=== PATIENT | female | born 1965 | race Caucasian/White ===

== ENCOUNTER 2018-07-02 10:54 | Outpatient (CLI) | payer OTHER ==
--- NOTE | 2018-07-02 11:20 | RAD ---
FOUR VIEWS LEFT KNEE: Date: 07-02-18 Comparison: None. History: Knee pain. FINDINGS: There is moderate medial compartment narrowing with associated osteophyte formation involving the med ial tibial plateau and medial femoral condyle. There is mild lateral compartment narrowing with assoc iated osteophyte formation of the lateral femoral condyle and lateral tibial plateau. There is no knee joint effusion, displaced fracture, or dislocation. There is moderate patellofemoral degenerative joint disease as well. IMPRESSION: Multi-compartment degenerative joint disease. No acute osseous abnormality. POS: CYNDY
--- NOTE | 2018-07-02 11:29 | RAD ---
FOUR VIEWS RIGHT KNEE: Date: 07-02-18 Comparison: None. History: Chronic knee pain. FINDINGS: There is no displaced fracture or evidence of dislocation. No knee joint effusion. IMPRESSION: No acute findings. POS: CYNDY
== END 2018-07-02 10:55 | disposition home or self-care (01) ==
LOC: SCSRAD 10:54
PROVIDERS: ATTEND Nurse Practitioner
DX: M17.0 Bilateral primary osteoarthritis of knee (principal)

== ENCOUNTER 2019-03-31 06:56 | Day surgery (SDC) | payer OTHER ==
[2019-03-30 13:17] VITALS: BMI 38.7
[2019-03-31] MEDS ORDERED: Midazolam HCl 2 mg/2 ml Vial ONE (08:08)
[2019-03-31] MEDS ORDERED: Fentanyl 100 MCG/2 ML VIAL ONE ×2 (08:08→09:17)
[2019-03-31] MEDS ORDERED: Lidocaine 1% w/Epinephrine 1:100K 30 ML VIAL ONE (09:39)
--- NOTE | 2019-03-31 16:23 | OP ---
DATE OF PROCEDURE: 03/31/2019 PREOPERATIVE DIAGNOSIS: Left carpal tunnel syndrome. POSTOPERATIVE DIAGNOSIS: Left carpal tunnel syndrome. PROCEDURE PERFORMED: Left carpal tunnel release. ANESTHESIOLOGIST: Musa Rivas MD. ANESTHESIA: The patient received an LMA with 7 mL of lidocaine 1% with epinephrine. ESTIMATED BLOOD LOSS: Less than 15 mL. TOURNIQUET TIME: 5 minutes at 250 mmHg. ANTIBIOTICS: Ancef 2 g. COMPLICATIONS: None. HISTORY OF PRESENT ILLNESS: Ms. Fuller is a 53-year-old female, history of right release. Previous carpal tunnel conduction studies positive. The patient has history of numbness and tingling, night pain to her left hand. We discussed risks and benefits of open release to include pain, scar, bleeding, infection, damage to vital structures, decreased range of motion and strength, need for further surgeries, failure of procedure, continued pain despite surgical intervention, loss of life or limb. The patient understood the risks and benefits and elected to proceed. DESCRIPTION OF PROCEDURE: Time-out was performed designating the patient's left upper extremity as the operative site based on site, consents, and markings. After time-out, the patient's left upper extremity was prepped and draped in sterile fashion. Tourniquet was brought up and left for 15 minutes. An incision was made in proximal Welch's cardinal line in line with the fourth ray down through skin , came down to the palmar fascia which we incised, came down to the palmaris brevis down to the transverse carpal ligament using sharp knife, protecting it with a hemostat, came down, exposed the nerve, ensured that the fascia were completely proximally washed. After let the tourniquet down for 5 minutes, controlled bleeding and closed with 3-0 nylon. We injected 7 mL of lidocaine 1% with epi into the wound and closed with 4-0 nylon. We had washed and closed. The patient will be discharged home with pain medications. Follow up in 10 to 12 days. Job ID: [id number] [facility]
== END 2019-03-31 11:45 | disposition home or self-care (01) ==
LOC: SDC 06:56
PROVIDERS: ATTEND Orthopaedic Surgery
PROC: 01N50ZZ Release Median Nerve, Open Approach (ICD-10-PCS; principal; 2019-03-31)
DX: G56.02 Carpal tunnel syndrome, left upper limb (principal)
CPT/HCPCS: J0690; J2001; J2250; J3010

== ENCOUNTER 2019-09-20 10:10 | Outpatient (CLI) | payer OTHER ==
--- NOTE | 2019-09-20 11:00 | MMO ---
Left Breast MAMMO Unilat Diag DDI LT+BETTEI. CLINICAL HISTORY: Patient is 54 years old and is seen for additional evaluation requested at current screening. The patient has no family history of breast cancer. The patient has no personal history of cancer. VIEWS: The views performed were: left craniocaudal spot compression with tomosynthesis; left mediolateral oblique spot compression with tomosynthesis; and left mediolateral with tomosynthesis. FILMS COMPARED: The present examination has been compared to prior imaging studies performed at [facility] on 08/22/2019 and 09/20/2019. This study has been interpreted with the assistance of computer-aided detection. MAMMOGRAM FINDINGS: There are scattered fibroglandular densities. Asymmetry inner lower left breast appears to represent asymmetric parenchyma. No mass seen on diagnostic exam. No ultrasound abnormality. Recommend 6 month follow up mammogram. IMPRESSION: FINDING IN THE LEFT BREAST IS PROBABLY BENIGN. FOLLOW-UP IN 6 MONTHS IS RECOMMENDED. THE RESULTS OF THIS EXAM WERE SENT TO THE PATIENT. ACR BI-RADS Category 3 - Probably benign finding - short interval follow-up suggested. [facility] will notify the patient of the need for additional imaging services. MAMMOGRAPHY NOTE: 1. A negative mammogram report should not delay a biopsy if a dominant of clinically suspicious mass is present. 2. Approximately 10% to 15% of breast cancers are not detected by mammography. 3. Adenosis and dense breasts may obscure an underlying neoplasm. Reported by: RADHA HURTADO MD Electonically Signed: [id number]
--- NOTE | 2019-09-20 12:19 | ULT ---
ULTRASOUND LEFT BREAST: Date: 09/20/2019 INDICATION: Ultrasound inner lower left breast performed to evaluate an asymmetry seen on mammography. FINDINGS: No sonographic abnormality identified. IMPRESSION: No sonographic abnormality. The final BIRADS is a BIRADS Category 3. Recommend 6 month follow-up mamm ogram to confirm mammogram stability.
== END 2019-09-20 10:11 | disposition home or self-care (01) ==
LOC: BICMAMMO 10:10
PROVIDERS: ATTEND Nurse Practitioner
DX: N64.89 Other specified disorders of breast (principal)
CPT/HCPCS: G0279

== ENCOUNTER 2024-03-10 15:25 | Outpatient (CLI) | payer OTHER | END 2024-03-10 15:26 | disposition home or self-care (01) | LOC: SCSMRI 15:25 | PROVIDERS: ATTEND Orthopaedic Surgery | DX: M25.511 Pain in right shoulder (principal) ==